=== PATIENT | male | born 1960 | race Caucasian/White ===

== ENCOUNTER 2018-04-01 15:11 | Emergency (ER) | payer MEDICARE ==
[~2018-04-01] VITALS: Ht 167.6 cm; Wt 82.3 kg
[~2018-04-01 15:11] MED LIST: BISA5TAB10 PO; BUSP15TA3 PO; CLON0.5T12 PO; FLUO40CA49 PO; GABA-531 PO; HYDR-4001 PO; OMEP40CA34 PO; PROC10TA17 PO; PROP20TA7 PO; TAMS0.4C31 PO; TOPI25TA48 PO; TRAZ-213 PO
[2018-04-01 21:00] VITALS: BP 132/76
== END 2018-04-01 21:15 | disposition home or self-care (01) ==
LOC: ER 15:11
DX: S93.491A Sprain of other ligament of right ankle, initial encounter (principal); R05 Cough; X58.XXXA Exposure to other specified factors, initial encounter; Y93.89 Activity, other specified; Y92.89 Other specified places as the place of occurrence of the external cause; F17.210 Nicotine dependence, cigarettes, uncomplicated
CPT/HCPCS: 73610; 99283